=== PATIENT | male | born 1985 | race Caucasian/White ===

== ENCOUNTER 2023-04-01 16:44 | Emergency (ER) | payer MEDICAID ==
[~2023-04-01] VITALS: Ht 167.6 cm; Wt 36.3 kg
--- NOTE | 2023-04-01 16:46 | NUR ---
PREET ALS TO ER BED 6
[2023-04-01 16:56] VITALS: BP 132/93
--- NOTE | 2023-04-01 17:00 | NUR ---
BIBA FOR HEROIN OVERDOSE, STATES THAT HE PASSED OUT BUT DOES NOT KNOW FOR HOW LONG. STATES THAT HE DID 10 CC OF HEROIN.
--- NOTE | 2023-04-01 17:17 | NUR ---
Updated Alcides Goodrich, brother, on patients condition. Call back number for brother is [phone].
--- NOTE | 2023-04-01 17:42 | NUR ---
Dr. Grossman re-evaluating patient at bedside.
--- NOTE | 2023-04-01 17:44 | NUR ---
Updated Alcides of patients discharge. Alcides states he will be here in 20 minutes.
[2023-04-01] MEDS ORDERED: NALO4SPR NS (17:46)
--- NOTE | 2023-04-01 17:53 | NUR ---
The patient's care was reviewed and supervised by [facility], RN.
[2023-04-01 18:16] VITALS: BP 134/92
--- NOTE | 2023-04-01 18:16 | NUR ---
Patient discharged with v/s stable. Written and verbal after care instructions given. Patient alert, oriented and verbalized understanding of instructions. Ambulatory with steady gait. All questions addressed prior to discharge. ID band removed. Patient advised to follow up with PMD. Rx of Narcan given. Opportunity to ask questions provided and answered.
== END 2023-04-01 18:16 | disposition home or self-care (01) ==
LOC: MED 16:44
DX: Z00.00 Encounter for general adult medical examination without abnormal findings (principal); T50.7X1A Poisoning by analeptics and opioid receptor antagonists, accidental (unintentional), initial encounter; Z79.899 Other long term (current) drug therapy; Y92.89 Other specified places as the place of occurrence of the external cause
CPT/HCPCS: 93005; 99283